=== PATIENT | female | born 1985 | race African-American/Black ===

== ENCOUNTER 2016-06-13 07:23 | Emergency (ER) | payer OTHER ==
--- NOTE | ~2016-06-13 | CR63 ---
[facility]. [facility] A Service of [facility] & [facility] RADIOLOGY TEXT RESULTS PATIENT: JOSH BO LOCATION: SED : 87 UNIT #: [id number] AGE: [address]: Karthik Barrett MD SEX: F ORDER DR: [id number] [place] [id number] E MR#: [id number] Acc #: [id number] NAME: JOSH BO : 1985 SEX: F STUDY DATE/TIME: 06/13/2016 7:19 UNIT: SED ROOM: STUDY DESCRIPTION: CR Chest 2 View Attending Physician: Karthik Barrett M.D. Ordering Physician: Karthik Barrett M.D. Primary Care Physician: No Primary Care Physician MEDICAL IMAGING REPORT This report is preliminary unless electronic signature is present. EXAM Chest x-ray, 06/13. INDICATIONS Chest pain for 1 week. Pain with deep inspiration. Chills and shortness of air. FINDINGS 2 views of the chest were obtained. No comparison. Lung volumes are low. There is elevation of the right hemidiaphragm. There is some mild right base atelectasis. Lungs are otherwise clear and there is no pneumothorax. Cardiac and mediastinal contours are normal. IMPRESSION Low-volume inspiration with elevation of the right hemidiaphragm and some right lung base atelectasis. Dictated by... Giorgio Zhao Jr., M.D. THIS IS AN ELECTRONICALLY VERIFIED REPORT Giorgio Zhao Jr., M.D. at 06/13/2016 3:46 PM MISTI/martha TD: 06/13/2016 13:49 JOB #: [id number] MEDICAL IMAGING REPORT Page 1 of 1
[~2016-06-13 07:23] MED LIST: NO MEDICATIONS
== END 2016-06-13 08:09 | disposition home or self-care (01) ==
LOC: SED 07:23
DX: R07.9 Chest pain, unspecified (principal)
CPT/HCPCS: 71020; 96372; 99284; J1885

== ENCOUNTER 2016-09-10 06:31 | Emergency (ER) | payer OTHER | END 2016-09-10 07:59 | disposition home or self-care (01) | LOC: SED 06:31 | DX: L93.0 Discoid lupus erythematosus (principal) | CPT/HCPCS: 99283 ==